=== PATIENT | male | born 1930 | race Hispanic/Latino ===

== ENCOUNTER 2017-03-17 13:09 | Outpatient (CLI) | payer MEDICARE, MEDICAID ==
--- NOTE | 2017-03-18 09:37 | SJPRAD ---
SACRUM AND COCCYX 3 VIEWS: HISTORY: Tailbone pain. FINDINGS: Gas within the rectum predominantly obscures the coccyx on the frontal view. No displaced fractures are apparent. Osseous structures are demineralized. Sacral alae are intact. IMPRESSION: Osteoporosis. No acute osseous abnormalities are demonstrated. POS: NATAN
== END 2017-03-17 13:10 | disposition home or self-care (01) ==
LOC: MWLC RAD 13:09
PROVIDERS: ATTEND Family Medicine
DX: M54.5 Low back pain (principal); M81.0 Age-related osteoporosis without current pathological fracture